=== PATIENT | female | born 2000 | race American Indian/Alaskan Native ===

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

== ENCOUNTER 2019-01-08 22:52 | Emergency (ER) | payer MEDICAID ==
[2019-01-09 02:21] VITALS: BP 127/76
== END 2019-01-09 01:30 | disposition left against medical advice (07) ==
LOC: ED 22:52
DX: M79.601 Pain in right arm (principal); Z53.21 Procedure and treatment not carried out due to patient leaving prior to being seen by health care provider

== ENCOUNTER 2019-01-15 13:48 | Emergency (ER) | payer MEDICAID ==
[2019-01-15 14:03] VITALS: BP 153/82
--- NOTE | 2019-01-15 14:05 | Emergency Department Report ---
Chief Complaint: Medical Clearance Stated Complaint: MEDICAL CLEARANCE Time Seen by Provider: 01/15/19 14:00 - HPI History of Present Illness: This is a 18 y.o. F. that presents with pain to right wrist. She accidentally slammed her arm in car door last Wednesday. She was seen by Urgent Care last Wednesday and told to have a follow up X-ray of forearm because it didn't show signs of fracture. Reports increasing pain. - Exam Vital Signs: Vital Signs 01/15/19 14:00 Temperature 98.6 F Pulse Rate 68 Respiratory 18 Rate Blood Pressure 153/82 O2 Sat by Pulse 99 Oximetry MSE screening note: Focused history and physical exam performed. Due to findings the following was ordered: XR forearm ED Disposition for MSE Condition: Stable
--- NOTE | 2019-01-15 15:21 | XRay Report ---
PROCEDURE: XR FOREARM RT TECHNIQUE: 2 views of the right forearm HISTORY: pain COMPARISONS: None. FINDINGS: There is normal alignment without acute fracture or dislocation. The joint spaces are preserved. The overlying soft tissues are intact. IMPRESSION: No acute bony abnormality of the right forearm. This document is electronically signed by Ashlie Weaver MD., Jan 15 2019 03:18:37 PM ET
--- NOTE | 2019-01-15 15:29 | Emergency Department Report ---
Chief Complaint: Medical Clearance Stated Complaint: MEDICAL CLEARANCE Time Seen by Provider: 01/15/19 14:00 - HPI History of Present Illness: This is a 18-year-old female presents ED stay in the she needs a work note to be cleared to go back to work with no rashes. Patient states she was evaluated for wrist injury weeks ago and was brought sent to return to work with limitations of lifting less than 15 pounds. Patient states that her wrist is better inhaler and she is able to return back to work with smita duties. She denies any other symptoms - ROS Review of Systems: noted in HPI, denies all other symptoms - Exam Vital Signs: Vital Signs 01/15/19 14:00 Temperature 98.6 F Pulse Rate 68 Respiratory 18 Rate Blood Pressure 153/82 O2 Sat by Pulse 99 Oximetry Physical Exam: GENERAL: Alert and oriented x3, no apparent distress, Normal Gait, atraumatic. HEAD: Head is normocephalic and a-traumatic. EXTREMITIES/MUSCULOSKELETAL: No cyanosis, clubbing, rash, lesions or edema. Full ROM bilaterally. UE/LE Pulses 2+ bilaterally. LE and UE 5+ strength bilaterally, MSE screening note: Focused history and physical exam performed. Due to findings the following was ordered: ED Medical Decision Making - Medical Decision Making 18-year-old female presents with clearance return back to work There is no wrist injury noted on palpation. Palpation given return back to workwith no restrictions. ED Disposition for MSE Clinical Impression: Wrist pain, chronic Disposition: DC-01 TO HOME OR SELFCARE Is pt being admited?: No Does the pt Need Aspirin: No Condition: Stable Instructions: Wrist Injury (ED) Additional Instructions: Make sure to follow up with the primary care physician as discussed. Take all your medications as you've been prescribed. If you have any worsening symptoms or develop new symptoms please return to ED immediately. Referrals: BRUNILDA TURCIOS MD [Primary Care Provider] - 3-5 Days Forms: Accompanied Note, Work/School Release Form(ED) Time of Disposition: 15:28
== END 2019-01-15 15:40 | disposition home or self-care (01) ==
LOC: ED 13:48
DX: M25.531 Pain in right wrist (principal); G89.29 Other chronic pain
CPT/HCPCS: 99283

== ENCOUNTER 2019-09-14 14:29 | Emergency (ER) | payer SELFPAY ==
[2019-09-14 14:38] VITALS: BP 124/76
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
--- NOTE | 2019-09-14 15:31 | XRay Report ---
RIGHT WRIST 2 VIEWS INDICATION: pain. COMPARISON: None. IMPRESSION: No acute osseous or soft tissue abnormality. No significant DJD. Signer Name: Rashid Sanford Jr, MD Signed: 09/14/2019 3:27 PM Workstation Name: [id number]
--- NOTE | 2019-09-14 15:50 | Emergency Department Report ---
ED Upper Extremity Inj HPI - General Chief Complaint: Extremity Injury, Upper Stated Complaint: RIGHT WRISIT PAIN Time Seen by Provider: 09/14/19 15:09 Source: patient Mode of arrival: Ambulatory Limitations: No Limitations - History of Present Illness Initial Comments: This pleasant 18-year-old female presents to [facility] per chief complaint of right wrist pain. 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 She denies any injuries. She states any movement of the wrist is painful. Pain is made out of 10 severity and shoots up in the fingertips. She points to the palmar side of the wrist. She denies any known past medical history, current medications or known allergies to medications. - Related Data Previous Rx's Medication Instructions Recorded Last Taken Type Fluconazole [Diflucan] 150 mg PO DAILY #2 tablet 11/30/18 Unknown Rx metroNIDAZOLE [Flagyl] 500 mg PO Q12HR #14 tab 11/30/18 Unknown Rx Naproxen [Naprosyn] 500 mg PO BID #20 tablet 09/14/19 Unknown Rx Allergies Allergy/AdvReac Type Severity Reaction Status Date / Time No Known Allergies Allergy Verified 11/30/18 13:51 ED Review of Systems ROS: Stated complaint: RIGHT WRISIT PAIN Other details as noted in HPI Comment: All other systems reviewed and negative Constitutional: denies: chills, fever Eyes: denies: eye pain, eye discharge, vision change ENT: denies: ear pain, throat pain Respiratory: denies: cough, shortness of breath, wheezing Cardiovascular: denies: chest pain, palpitations Endocrine: no symptoms reported Gastrointestinal: denies: abdominal pain, nausea, diarrhea Genitourinary: denies: urgency, dysuria, discharge Musculoskeletal: as per HPI, arthralgia. denies: back pain, joint swelling Skin: denies: rash, lesions Neurological: denies: headache, weakness, paresthesias Psychiatric: denies: anxiety, depression Hematological/Lymphatic: denies: easy bleeding, easy bruising ED Past Medical Hx - Past Medical History Previous Medical History?: No - Surgical History Past Surgical History?: No - Social History Smoking Status: Current Every Day Smoker - Medications Home Medications: Home Medications Medication Instructions Recorded Confirmed Last Taken Type Fluconazole [Diflucan] 150 mg PO DAILY #2 tablet 11/30/18 Unknown Rx metroNIDAZOLE [Flagyl] 500 mg PO Q12HR #14 tab 11/30/18 Unknown Rx Naproxen [Naprosyn] 500 mg PO BID #20 tablet 09/14/19 Unknown Rx ED Physical Exam - General Limitations: No Limitations General appearance: alert, in no apparent distress - Head Head exam: Present: atraumatic, normocephalic - Eye Eye exam: Present: normal appearance, PERRL, EOMI Pupils: Present: normal accommodation - ENT ENT exam: Present: normal exam, normal orophraynx, mucous membranes moist - Neck Neck exam: Present: normal inspection, full ROM. Absent: tenderness, meningismus - Respiratory Respiratory exam: Present: normal lung sounds bilaterally. Absent: respiratory distress, wheezes, rales, rhonchi, stridor - Cardiovascular Cardiovascular Exam: Present: regular rate, normal rhythm, normal heart sounds. Absent: systolic murmur, diastolic murmur, rubs, gallop - GI/Abdominal GI/Abdominal exam: Present: soft, normal bowel sounds. Absent: distended, tenderness, guarding, rebound, rigid - Extremities Exam Extremities exam: Present: normal inspection, full ROM, tenderness (tenderness to palpation and percussion over the palmar side of the right wrist. Positive Tinel sign. Positive Phalen's test. Normal distal sensation Refill. Normal radial pulses.), normal capillary refill - Back Exam Back exam: Present: normal inspection, full ROM. Absent: tenderness, CVA tenderness (R), CVA tenderness (L) - Neurological Exam Neurological exam: Present: alert, oriented X3, normal gait - Psychiatric Psychiatric exam: Present: normal affect, normal mood - Skin Skin exam: Present: warm, dry, intact, normal color. Absent: rash ED Course Vital Signs 09/14/19 14:33 Temperature 98.6 F Pulse Rate 78 Respiratory 16 Rate Blood Pressure 124/76 O2 Sat by Pulse 100 Oximetry ED Medical Decision Making - Radiology Data Radiology results: report reviewed XRay Report Signed Patient: CHARLIE LLOYD MR#: [id number] : 2000 Acct:[id number] Age/Sex: 18 / F ADM Date: 09/14/19 Loc: ED Attending Dr: Ordering Physician: LISSETTE MAGAÑA Date of Service: 09/14/19 Procedure(s): XR wrist 2V RT Accession Number(s): [id number] cc: LISSETTE MAGAÑA Fluoro Time In Minutes: RIGHT WRIST 2 VIEWS INDICATION: pain. COMPARISON: None. IMPRESSION: No acute osseous or soft tissue abnormality. No significant DJD. Signer Name: Rashid Sanford Jr, MD Signed: 09/14/2019 3:27 PM Workstation Name: [id number] Transcribed By: TTR Dictated By: RASHID SANFORD JR, MD Electronically Authenticated By: RASHID SANFORD JR, MD Signed Date/Time: 09/14/19 1527 - Medical Decision Making X-ray was negative for acute findings. Exam was consistent with acute carpal tunnel syndrome. Patient was placed in a brace by the nurse. This was supervised by me in the neurovascular exam was intact pre-and post application. Patient was educated to rest, ice, elevate and take anti-inflammatories for pain. Recommended orthopedic follow-up for nerve conduction studies and possible carpal tunnel release if indicated. Patient verbalized understanding of these instructions will be discharged in stable condition with no further concerns. She verbalized understanding of the diagnosis, treatment plan and follow-up instructions and all of her questions were answered. - Differential Diagnosis fracture, strain, carpal tunnel syndrome Critical care attestation.: If time is entered above; I have spent that time in minutes in the direct care of this critically ill patient, excluding procedure time. ED Disposition Clinical Impression: Carpal tunnel syndrome of right wrist Disposition: DC- TO HOME OR SELFCARE Is pt being admited?: No Condition: Stable Instructions: Carpal Tunnel Syndrome (ED) Prescriptions: Naproxen [Naprosyn] 500 mg PO BID #20 tablet Referrals: [facility] MD THERESA [Primary Care Provider] - 3-5 Days TONE MELENDEZ MD [Staff Physician] - 3-5 Days Forms: Work/School Release Form(ED) Time of Disposition: 15:52
== END 2019-09-14 16:10 | disposition home or self-care (01) ==
LOC: ED 14:29
DX: G56.01 Carpal tunnel syndrome, right upper limb (principal); F17.200 Nicotine dependence, unspecified, uncomplicated; Z79.899 Other long term (current) drug therapy
CPT/HCPCS: 29260